=== PATIENT | female | born 1965 ===

== ENCOUNTER 2020-10-04 06:08 | Inpatient (IN) ==
[~2020-10-04 06:08] MED LIST: Buffered Lidocaine 1% SYRIN 1 ml INTRADERM ONE; Dexamethasone IV 4 MG/ML VIAL 1 ml VIAL IV SLOW PU ONE; Lactated Ringers 1000 ml BAG 1,000 ML IV SCH
[2020-10-04] MEDS ORDERED: ceFAZolin 2 GM PREMIX 2 GM/50 ML BAG ONE (06:13)
[2020-10-04] MEDS ORDERED: Dexamethasone IV 4 MG/ML VIAL 1 ml VIAL ONE (06:13)
[2020-10-04] MEDS ORDERED: Buffered Lidocaine 1% SYRIN 1 ml INTRADERM ONE (06:14)
[2020-10-04] MEDS ORDERED: Propofol 10 MG/ML 20 ML BTL ONE ×2 (07:15→09:09)
[2020-10-04] MEDS ORDERED: Lidocaine 2% PF 5 ML VIAL ONE (07:15)
[2020-10-04] MEDS ORDERED: Rocuronium 50 mg VIAL 10 mg/ml 5 ml VIAL (50 mg) ONE ×2 (07:15→08:33)
[2020-10-04] MEDS ORDERED: Midazolam 2 mg/2 ml VIAL 1 mg/ml 2 ml VIAL (2 mg) ONE (07:15)
[2020-10-04] MEDS ORDERED: fentaNYL 100 mcg/2 ml 50 MCG/ML VIAL ONE ×2 (07:15→09:07)
[2020-10-04] MEDS ORDERED: fentaNYL 100 mcg/2 ml 50 MCG/ML VIAL IV PRN (08:14)
[2020-10-04] MEDS ORDERED: Ondansetron 4 mg VIAL 2 MG/ML 2 ml VIAL IV PRN ×2 (08:14→10:39)
[2020-10-04] MEDS ORDERED: Naloxone 0.4 mg VIAL 0.4 mg/ml 1 ml VIAL IV PRN (08:14)
[2020-10-04] MEDS ORDERED: HYDROmorphone 1 MG/1 ML SYRINGE IV PRN (08:14)
[2020-10-04] MEDS ORDERED: Ondansetron 4 mg VIAL 2 MG/ML 2 ml VIAL ONE (08:34)
[2020-10-04] MEDS ORDERED: Methylene Blue 0.5 % 50 MG/10 ML AMP IV ONE (08:49)
[2020-10-04] MEDS ORDERED: HYDROmorphone 1 MG/1 ML SYRINGE ONE (09:07)
[2020-10-04] MEDS ORDERED: HYDROmorphone 1 MG/1 ML SYRINGE IV SLOW PU PRN (10:39)
[2020-10-04] MEDS ORDERED: Lactated Ringers 1000 ml BAG 1,000 ML IV SCH (11:00)
[2020-10-04] MEDS: oxyCODONE/Acetamin 5/325 mg TAB PO PRN ×2 (12:28→16:31)
[2020-10-05 05:57] LABS: ABS Lymphocytes 2.3 10^3/ul (1.0-4.8); ABS Monocytes 0.9 10^3/ul (0-0.8); ABS Neutrophils 4.9 10^3/ul (1.5-7.7); Eosinophil % 0.4 %; Hematocrit 31 % (35-47); Hemoglobin 10.6 g/dL (12.0-16.0); Lymphocyte % 28.2 %; Mean Corpuscular HGB Conc 34 g/dL (31-36); Mean Corpuscular Hemoglobin 33 pg (27-31); Mean Corpuscular Volume 95 fL (80-97); Mean Platelet Volume 9.1 fL (7.4-10.4); Platelet Count 173 10^3/uL (150-450); Red Blood Count 3.27 10^6 /uL (3.70-4.87); Red Cell Distribution Width 13 % (10-15); White Blood Count 8.2 10^3/uL (3.5-10.8)
[2020-10-05 06:18] LABS: BUN/Creatinine Ratio 13.7 (8-20); Calcium 8.5 mg/dL (8.6-10.3); EGFR African American 152.6 (>60); EGFR Non-African American 126.1 (>60); Potassium 4.1 mmol/L (3.5-5.0)
[2020-10-05] MEDS: oxyCODONE/Acetamin 5/325 mg TAB PO PRN ×2 (12:34→22:50)
[2020-10-06] MEDS ORDERED: Magnesium Hydroxide LIQ 30 ML UDC PO ONE (08:38)
[2020-10-06] MEDS ORDERED: Magnesium Hydroxide LIQ 30 ML UDC ONE (08:48)
[2020-10-06 11:19] VITALS: BP 110/69
[2020-10-07] MEDS ORDERED: Scopolamine PATCH Remove NOTE PATCH OFF ONE (06:00)
== END 2020-10-06 12:05 | disposition home or self-care (01) | DRG 743 ==
LOC: OR 06:08 → SSU 10:40
PROVIDERS: ADMIT Obstetrics & Gynecology; ATTEND Obstetrics & Gynecology